=== PATIENT | female | born 1995 | race Caucasian/White ===

== ENCOUNTER 2020-08-16 17:20 | Inpatient (IN) ==
[2020-08-16] MEDS ORDERED: DILAUDID INJ IVP PRN (17:51)
[2020-08-16] MEDS ORDERED: PHENERGAN INJ 25 MG IM PRN ×2 (17:51→23:51)
[2020-08-16] MEDS ORDERED: REGLAN INJ 10 MG VIAL IVP PRN (17:51)
[2020-08-16] MEDS ORDERED: D5LR 1L W PITOCIN 10 UNITS/L 10 UNITS/1,000 ML BAG IV PRN (17:51)
[2020-08-16] MEDS ORDERED: PITOCIN IVP ONE (17:51)
[2020-08-16] MEDS ORDERED: STADOL INJ IVP PRN (17:59)
[2020-08-16] MEDS ORDERED: D5 1/2 NS 1000 ML 1,000 ML IV SCH (18:00)
[2020-08-16] MEDS ORDERED: BETADINE SOLN ONE (18:13)
[2020-08-16] MEDS ORDERED: PITOCIN ONE (18:13)
[2020-08-16] MEDS ORDERED: D5 1/2 NS 1000 ML 1,000 ML IV ONE (18:13)
[2020-08-16] MEDS ORDERED: D5LR 1L W PITOCIN 10 UNITS/L 10 UNITS/1,000 ML BAG IV ONE (18:14)
[2020-08-16] MEDS ORDERED: D5 1/2 NS 1L W PITOCIN 20 UNITS/L 20 UNITS/1,000 ML BAG IV ONE (18:14)
[2020-08-16 18:26] LABS: BILIRUBIN,URINE NEGATIVE (NEGATIVE); BLOOD/HEMOGLOBIN,URINE NEGATIVE (NEGATIVE); GLUCOSE, URINE NEGATIVE (NEGATIVE); KETONES,URINE NEGATIVE (NEGATIVE); LEUKOCYTE ESTERASE ,URINE NEGATIVE (NEGATIVE); NITRITES,URINE NEGATIVE (NEGATIVE); PROTEIN,URINE NEGATIVE (NEGATIVE); UROBILINOGEN,URINE NORMAL (NORMAL)
[2020-08-16 18:30] LABS: APPEARANCE,URINE CLEAR (CLEAR); COLOR,URINE YELLOW (YELLOW)
[2020-08-16 18:36] LABS: BASOPHILS % (AUTO) 0.1 % (0.2-1.0); EOSINOPHILS # (AUTO) 0.1 x10^3/uL (0.0-0.2); EOSINOPHILS % (AUTO) 0.7 % (0.9-2.9); HEMATOCRIT 30.3 % (36.0-47.0); HEMOGLOBIN 10.1 g/dL (12.0-16.0); LYMPHOCYTES # (AUTO) 2.4 X10^3/uL (1.3-2.9); LYMPHOCYTES % (AUTO) 17.1 % (21.0-51.0); MEAN CORPUSCULAR HEMOGLOBIN 28.2 pg (27.0-34.0); MEAN CORPUSCULAR HGB CONC 33.4 g/dL (33.0-35.0); MEAN CORPUSCULAR VOLUME 84.3 fL (80.0-100.0); MEAN PLATELET VOLUME 7.3 fL (7.4-11.0); MONOCYTES % (AUTO) 7.4 % (0.0-13.0); NEUTROPHILS # (AUTO) 10.3 x10^3/uL (2.2-4.8); NEUTROPHILS % (AUTO) 74.7 % (42.0-75.0); PLATELET COUNT 325 X10^3/uL (150.0-450.0); RED CELL DISTRIBUTION WIDTH 14.4 % (11.6-16.5); WHITE BLOOD COUNT 13.8 X10^3/uL (3.6-10.0)
[2020-08-16 18:37] LABS: BLOOD UREA NITROGEN 8 mg/dL (7-18); CALCIUM 8.7 mg/dL (8.5-10.1); CARBON DIOXIDE 25.8 mmol/L (21-32); CHLORIDE 102 mmol/L (98-107); CREATININE 0.82 mg/dL (0.55-1.02); SODIUM 136 mmol/L (136-145); eGFR NON BLACK RACES > 60 (>60)
[2020-08-16] MEDS ORDERED: ATIVAN INJ 2 MG VIAL IVP PRN ×3 (18:48→23:47)
--- NOTE | 2020-08-16 19:01 | US ---
HISTORYFETAL DEMISESTUDYOB GREATER THAN 14 WEEKS LIMITCOMPARISONNone availableTECHNIQUEMultiple ball scale and color flow Doppler images of the pelvis were obtained with focused evaluation of the fetus.FINDINGSA single fetus is noted in vertex position within the uterus. No flow identified with umbilical cord. No heart tones were identified.The estimated gestational age is 33 weeks, 3 days based on a biparietal diameter of 8.3 cm. Normal amount of amniotic fluid is noted.The anteriorly positioned placenta demonstrates multiple dystrophic calcifications.IMPRESSIONLack of color flow within the umbilical cord or heart rate is consistent with a demise. The positioning is vertex.Electronically signed by: JUAN LUIS BARRETO (Aug 16, 2020 18:58:05)
[2020-08-16] MEDS ORDERED: ATIVAN INJ 2 MG VIAL ONE ×2 (19:46→22:59)
[2020-08-16] MEDS ORDERED: NICOTINE PATCH TD ONE (19:53)
[2020-08-16] MEDS ORDERED: DILAUDID INJ ONE (21:24)
[2020-08-16] MEDS ORDERED: STADOL INJ ONE (23:08)
[2020-08-16] MEDS ORDERED: D5 1/2 NS 1000 ML 1,000 ML with PITOCIN 20 UNITS IV SCH ×2 (23:45)
[2020-08-16] MEDS ORDERED: IVERMECTIN PO SCH (23:45)
[2020-08-16] MEDS ORDERED: MOTRIN TAB 800 MG PO PRN (23:51)
[2020-08-17] MEDS ORDERED: VITAMIN C ONE (00:33)
[2020-08-17] MEDS ORDERED: VITAMIN D (1.25MG) PO ONE (00:34)
[2020-08-17] MEDS ORDERED: XANAX ONE (00:39)
[2020-08-17] MEDS ORDERED: MILK OF MAGNESIA PO PRN (00:50)
[2020-08-17] MEDS ORDERED: AMBIEN PO PRN (00:50)
[2020-08-17] MEDS: VITAMIN A PO SCH ×2 (01:07→09:15)
[2020-08-17] MEDS: VITAMIN C PO SCH ×2 (01:07→07:50)
[2020-08-17] MEDS: XANAX PO PRN ×2 (01:08→07:50)
[2020-08-17] MEDS: VITAMIN D (1.25MG) PO SCH ×2 (01:08→07:50)
[2020-08-17] MEDS ORDERED: IVERMECTIN PO SCH (02:30)
[2020-08-17 04:58] LABS: HEMATOCRIT 29.1 % (36.0-47.0); HEMOGLOBIN 9.5 g/dL (12.0-16.0)
[2020-08-17] MEDS ORDERED: LEXAPRO ONE (08:49)
[2020-08-17] MEDS ORDERED: PRENATAL PLUS PO SCH (09:00)
[2020-08-17] MEDS ORDERED: LEXAPRO PO SCH (09:00)
[2020-08-17] MEDS ORDERED: VITAMIN B-1 PO SCH (09:00)
[2020-08-17] MEDS ORDERED: NS 100 ML IV 100 ML with VENOFER 400 MG IV NR ×2 (11:24)
[2020-08-17] MEDS ORDERED: VENOFER IV ONE (13:00)
[2020-08-17] MEDS ORDERED: NS 100 ML IV 100 ML IV ONE (13:00)
[2020-08-17 17:06] VITALS: BP 116/59
== END 2020-08-17 16:48 | disposition home or self-care (01) | DRG 805 ==
LOC: LD 17:20 → ICU 08-17 00:28
PROVIDERS: ADMIT Obstetrics & Gynecology Obstetrics; ATTEND Obstetrics & Gynecology Obstetrics
DX: O99.323 Drug use complicating pregnancy, third trimester; F15.90 Other stimulant use, unspecified, uncomplicated; Z3A.35 35 weeks gestation of pregnancy; Z37.1 Single stillbirth; Z72.0 Tobacco use; U07.1 COVID-19; O98.52 Other viral diseases complicating childbirth

== ENCOUNTER 2023-03-20 16:12 | Inpatient (IN) ==
[2023-03-20 16:31] VITALS: BMI 32.1
[2023-03-20 16:43] LABS: BILIRUBIN,URINE NEGATIVE (NEGATIVE); BLOOD/HEMOGLOBIN,URINE 4+ (NEGATIVE); GLUCOSE, URINE NEGATIVE (NEGATIVE); KETONES,URINE NEGATIVE (NEGATIVE); LEUKOCYTE ESTERASE ,URINE 2+ (NEGATIVE); NITRITES,URINE NEGATIVE (NEGATIVE); PROTEIN,URINE 2+ (NEGATIVE); UROBILINOGEN,URINE 1+ (NORMAL)
[2023-03-20 16:47] LABS: AMNISURE ROM TEST THERE IS A RUPTURE (NO RUPTURE)
[2023-03-20 16:50] LABS: MEAN PLATELET VOLUME 7.5 fL (7.4-11.0); WHITE BLOOD COUNT 10.2 X10^3/uL (3.6-10.0)
[2023-03-20 16:51] LABS: APPEARANCE,URINE HAZY (CLEAR); BACTERIA,URINE TRACE /HPF (NEGATIVE); COLOR,URINE DARK YELLOW (YELLOW); RBC,URINE 30-50 /HPF (0-3); SQUAMOUS EPITHELIAL CELL,UR NUMEROUS /HPF (NEGATIVE); TRICHOMONAS,URINE MODERATE /HPF (NEGATIVE)
[2023-03-20 16:54] LABS: BASOPHILS % (AUTO) 0.3 % (0.2-1.0); EOSINOPHILS % (AUTO) 0.2 % (0.9-2.9); HEMATOCRIT 33.4 % (36.0-47.0); HEMOGLOBIN 11.4 g/dL (12.0-16.0); LYMPHOCYTES # (AUTO) 1.1 X10^3/uL (1.3-2.9); MEAN CORPUSCULAR HGB CONC 34.1 g/dL (33.0-35.0); MEAN CORPUSCULAR VOLUME 85.1 fL (80.0-100.0); MONOCYTES % (AUTO) 9.9 % (0.0-13.0); NEUTROPHILS % (AUTO) 78.6 % (42.0-75.0); PLATELET COUNT 242 X10^3/uL (150.0-450.0); RED BLOOD COUNT 3.92 X10^6/uL (3.5-5.4); RED CELL DISTRIBUTION WIDTH 14.9 % (11.6-16.5)
[2023-03-20 16:57] LABS: ALANINE AMINOTRANSFERASE 30 Units/L (12-78); ALBUMIN 2.1 g/dL (3.4-5.0); ALKALINE PHOSPHATASE 192 Units/L (46-116); ASPARTATE AMINO TRANSFERASE 47 Units/L (15-37); BLOOD UREA NITROGEN 5 mg/dL (7-18); CALCIUM 7.1 mg/dL (8.5-10.1); CARBON DIOXIDE 23.6 mmol/L (21-32); CHLORIDE 103 mmol/L (98-107); COR CA(FOR HYPOALB) 8.6 mg/dL (8.5-10.1); CREATININE 0.71 mg/dL (0.55-1.02); GLUCOSE 73 mg/dL (65-99); SODIUM 137 mmol/L (136-145); TOTAL PROTEIN 6.7 g/dL (6.4-8.2); eGFR NON BLACK RACES > 60 (>60)
[2023-03-20 16:58] LABS: POTASSIUM 3.9 mmol/L (3.5-5.1)
[2023-03-20] MEDS ORDERED: BETADINE SOLN ONE (17:10)
[2023-03-20] MEDS ORDERED: PITOCIN ONE (17:10)
[2023-03-20] MEDS ORDERED: LR 1,000 ML IV 1,000 ML IV ONE (17:10)
[2023-03-20] MEDS ORDERED: D5 LR + PITOCIN 10 UNITS/L 10 UNITS/1,000 ML BAG IV ONE (17:11)
[2023-03-20] MEDS ORDERED: D5 1/2 NS 1,000 mL + PITOCIN 20 UNITS/L IV 20 UNITS/1,000 ML BAG IV ONE (17:11)
[2023-03-20] MEDS ORDERED: ZOFRAN INJ 4 MG VIAL IVP PRN (17:17)
[2023-03-20] MEDS ORDERED: D5 LR + PITOCIN 10 UNITS/L 10 UNITS/1,000 ML BAG IV PRN (17:17)
[2023-03-20] MEDS ORDERED: REGLAN INJ 10 MG VIAL IVP PRN (17:17)
[2023-03-20] MEDS ORDERED: AMPICILLIN VIAL 2 GRAM 2 G in NS 100 ML IV + SPIKE MINIBAG* 100 ML IV SCH (18:00)
[2023-03-20] MEDS ORDERED: LR 1,000 ML IV 1,000 ML IV SCH (18:00)
[2023-03-20] MEDS ORDERED: AMPICILLIN VIAL 2 GRAM ONE (18:05)
[2023-03-20] MEDS ORDERED: NS 100 ML IV 100 ML ONE ×2 (18:05→22:05)
[2023-03-20] MEDS ORDERED: NUBAIN INJ 200 MG VIAL MULTIDOSE ONE (18:54)
[2023-03-20] MEDS: NUBAIN INJ 20 MG AMP IVP PRN ×3 (18:57→23:00)
[2023-03-20] MEDS ORDERED: AMPICILLIN VIAL 1 GRAM ONE (22:05)
[2023-03-21] MEDS ORDERED: AMPICILLIN VIAL 1 GRAM 1 G in NS 50 ML IV + SPIKE MINIBAG* 50 ML IV SCH ×2
[2023-03-21] MEDS ORDERED: NUBAIN INJ 200 MG VIAL MULTIDOSE ONE (00:40)
[2023-03-21] MEDS: NUBAIN INJ 20 MG AMP IVP PRN (00:56)
[2023-03-21] MEDS: PITOCIN IVP ONE ×2 (02:10→02:52)
[2023-03-21] MEDS ORDERED: MOTRIN TAB 800 MG PO PRN (02:37)
[2023-03-21] MEDS ORDERED: D5 1/2 NS 1,000 ML 1,000 ML with PITOCIN 20 UNITS IV SCH ×2 (03:00)
[2023-03-21] MEDS ORDERED: MILK OF MAGNESIA PO PRN (03:10)
[2023-03-21] MEDS ORDERED: AMBIEN PO PRN (03:10)
[2023-03-21] MEDS ORDERED: DERMOPLAST PAIN RELIEF SPRAY TOP PRN (03:10)
[2023-03-21 05:09] LABS: HEMATOCRIT 29.8 % (36.0-47.0); HEMOGLOBIN 9.9 g/dL (12.0-16.0)
[2023-03-21] MEDS: PRENATAL PLUS PO SCH (09:03)
[2023-03-21] MEDS ORDERED: NS 100 ML IV 100 ML with VENOFER 400 MG IV NR ×2 (14:00)
[2023-03-22 05:36] LABS: BASOPHILS # (AUTO) 0.1 X10^3/uL (0.0-0.1); BASOPHILS % (AUTO) 0.5 % (0.2-1.0); EOSINOPHILS % (AUTO) 0.2 % (0.9-2.9); HEMATOCRIT 28.3 % (36.0-47.0); HEMOGLOBIN 9.5 g/dL (12.0-16.0); LYMPHOCYTES # (AUTO) 2.1 X10^3/uL (1.3-2.9); LYMPHOCYTES % (AUTO) 19.3 % (21.0-51.0); MEAN CORPUSCULAR HEMOGLOBIN 28.6 pg (27.0-34.0); MEAN CORPUSCULAR HGB CONC 33.6 g/dL (33.0-35.0); MONOCYTES # (AUTO) 0.9 x10^3/uL (0.3-0.8); MONOCYTES % (AUTO) 7.9 % (0.0-13.0); NEUTROPHILS # (AUTO) 7.9 x10^3/uL (2.2-4.8); NEUTROPHILS % (AUTO) 72.1 % (42.0-75.0); PLATELET COUNT 242 X10^3/uL (150.0-450.0); RED BLOOD COUNT 3.33 X10^6/uL (3.5-5.4); RED CELL DISTRIBUTION WIDTH 14.5 % (11.6-16.5)
[2023-03-22 05:49] LABS: ALANINE AMINOTRANSFERASE 21 Units/L (12-78); ALBUMIN 1.6 g/dL (3.4-5.0); ALKALINE PHOSPHATASE 137 Units/L (46-116); ASPARTATE AMINO TRANSFERASE 32 Units/L (15-37); BLOOD UREA NITROGEN 5 mg/dL (7-18); CARBON DIOXIDE 24.3 mmol/L (21-32); CHLORIDE 106 mmol/L (98-107); COR CA(FOR HYPOALB) 8.9 mg/dL (8.5-10.1); CREATININE 0.72 mg/dL (0.55-1.02); GLUCOSE 73 mg/dL (65-99); POTASSIUM 3.5 mmol/L (3.5-5.1); SODIUM 139 mmol/L (136-145); TOTAL PROTEIN 5.4 g/dL (6.4-8.2); eGFR NON BLACK RACES > 60 (>60)
[2023-03-22] MEDS: PRENATAL PLUS PO SCH (09:38)
[2023-03-22 13:02] VITALS: BP 129/76; PULSE 74; RESP 19; TEMP 98.6; O2SAT 91
== END 2023-03-22 12:30 | disposition home or self-care (01) | DRG 807 ==
LOC: ER 16:12 → LD 16:56 → MED/SURG 03-21 02:38
PROVIDERS: ADMIT Obstetrics & Gynecology Obstetrics; ATTEND Obstetrics & Gynecology Obstetrics
DX: Z3A.37 37 weeks gestation of pregnancy; O98.82 Other maternal infectious and parasitic diseases complicating childbirth; Z86.19 Personal history of other infectious and parasitic diseases; O70.0 First degree perineal laceration during delivery; B95.1 Streptococcus, group B, as the cause of diseases classified elsewhere; Z37.0 Single live birth